=== PATIENT | female | born 1960 | race Caucasian/White ===

== ENCOUNTER 2017-05-28 12:39 | Outpatient (CLI) | payer OTHER ==
--- NOTE | 2017-05-28 14:48 | MRI ---
MRI CERVICAL SPINE WITHOUT CONTRAST: Date: 05/28/17 HISTORY: Right arm, shoulder, and neck pain. FINDINGS: The vertebral body heights and marrow signal are maintained. There are multilevel degenerative change s manifested by disc osteophyte complexes and uncovertebral hypertrophic changes at C4-5-6-7 levels. There is effacement of the anterior thecal sac and impingement of the anterior spinal cord, most pro minent at C6-7 level. There is severe left-sided neural foraminal stenosis and mild to moderate right -sided neural foraminal stenosis at C4-5 level, mild to moderate right-sided neural foraminal stenosi s at C5-6 level, and severe right-sided and moderate left-sided neural foraminal stenosis at C6-7 lev el. No syrinx, myelomalacia or cord edema is seen. No tonsillar herniation is identified. IMPRESSION: Cervical spondylosis with central canal and neural foraminal stenoses at C4-5,C5-6, and C6-7 le vels. POS: CAT
== END 2017-05-28 12:40 | disposition home or self-care (01) ==
LOC: MRI 12:39
PROVIDERS: ATTEND Physician Assistant
DX: R93.7 Abnormal findings on diagnostic imaging of other parts of musculoskeletal system (principal); M47.812 Spondylosis without myelopathy or radiculopathy, cervical region; M48.02 Spinal stenosis, cervical region; M99.51 Intervertebral disc stenosis of neural canal of cervical region
CPT/HCPCS: 72141

== ENCOUNTER 2017-06-25 12:11 | Outpatient (CLI) | payer OTHER | END 2017-06-25 12:12 | disposition home or self-care (01) | LOC: BICMRI 12:11 | PROVIDERS: ATTEND Physician Assistant Surgical | DX: M47.26 Other spondylosis with radiculopathy, lumbar region (principal); M54.12 Radiculopathy, cervical region; M46.92 Unspecified inflammatory spondylopathy, cervical region | CPT/HCPCS: 72050; 72110; 72148 ==

== ENCOUNTER 2017-10-20 10:46 | Outpatient (CLI) | payer OTHER ==
--- NOTE | 2017-11-05 10:30 | MMO ---
BILATERAL DIGITAL SCREENING MAMMOGRAMS: HISTORY: This 56-year-old female presents for digital screening mammography. COMPARISON: 05/16/16, 05/31/14 outside examinations. This patient's mammogram is interpreted with the assistance of computer-aided detection. FINDINGS: The breasts are heterogeneously dense which can obscure small masses. Stable typically benign calcif ications bilaterally. Stable bilateral asymmetric densities. IMPRESSION: BI-RADS category 2, benign findings. Continued routine screening. BIRADS 2: Benign Finding(s) Routine annual screening mammography (for women over age 40) POS: KAMI
== END 2017-10-20 10:47 | disposition home or self-care (01) ==
LOC: SCSMAMMO 10:46
PROVIDERS: ATTEND Physician Assistant
DX: Z12.31 Encounter for screening mammogram for malignant neoplasm of breast (principal)
CPT/HCPCS: 77067

== ENCOUNTER 2018-01-20 06:29 | Day surgery (SDC) | payer OTHER ==
[2018-01-19 08:51] VITALS: BMI 21.6
--- NOTE | 2018-01-20 03:35 | HP ---
SHORT STAY HISTORY AND PHYSICAL DATE OF ADMISSION: 01/20/2018 HISTORY OF PRESENT ILLNESS: This is a 57-year-old female comes for a colonoscopy for colon cancer screening. The patient has no specific GI symptoms. Her bowel movements are regular. There is no abdominal pain or hematochezia. No family history of colon cancer. The patient had a perforated diverticular disease in 2013 and underwent surgery with colostomy and subsequent colostomy takedown. No relevant history. ALLERGIES: CIPRO, SULFA, IODINE, NAPROXEN, VELBAN and EFFEXOR. SOCIAL HISTORY: The patient smokes a pack of cigarette. No alcohol intake.. MEDICAL ILLNESSES: 1. Hyperlipidemia. 2. Chronic back pain. 3. Ruptured diverticular disease. 4. Deep venous thrombosis. 5. Depression and anxiety. PHYSICAL EXAMINATION: VITAL SIGNS: Pulse is 70, blood pressure 130/70. HEENT: Conjunctivae clear. CARDIOVASCULAR: First and second heart sounds normal. LUNGS: Clear to auscultation. ABDOMEN: Soft to palpate. No organomegaly. No tenderness. No masses. Bowel sounds are normal. ADMITTING DIAGNOSIS: A 57-year-old female comes for a colonoscopy for colon cancer screening. ISABELLE
--- NOTE | 2018-01-20 10:11 | OP ---
DATE OF PROCEDURE: 01/20/2018 SURGEON: Fernanda Molina M.D. OPERATIVE PROCEDURE: Colonoscopy with polypectomy. PREOPERATIVE DIAGNOSIS: A 57-year-old female undergoing colonoscopy for colon cancer miko miguel. POSTOPERATIVE DIAGNOSES: 1. Sessile polyp rectum status post snare cautery with good hemostasis. 2. Hemorrhoids. 3. Healthy anastomosis. 4. Scattered diverticular disease of the left colon and some areas of distal transverse colon. PROCEDURE IN DETAIL: The patient was placed on her left lateral position and was given sedation by A nesthesia Department. A rectal exam was done before the scope was advanced into the rectum. No lesi on felt on rectal exam. A Pentax video colonoscope was introduced into the rectum and advanced all t he way into the cecum. The appendical opening, ileocecal valve, cecum, no pathology seen. The patie nt did have some retained fecal residue which was washed out. The mucosa appears normal throughout t he colon. Withdrawal of scope the cecum, ascending colon, hepatic flexure, proximal transverse colon , no pathology seen. The patient had some scattered diverticula over the distal and transverse colon , descending colon, and sigmoid colon. A sessile polyp over the rectum removed with snare cautery wi th good hemostasis. She also had hemorrhoids. DISCHARGE PLANNING: This is a 57-year-old female who came for a colonoscopy for colon [facility] screening. She underwent colonoscopy with polypectomy. DISCHARGE RECOMMENDATIONS: 1. The patient was advised to call me if she develops abdominal pain or hematochezia. 2. High-fiber diet. 3. Metamucil. 4. Repeat colonoscopy in 5 years.
[2018-01-20] MEDS ORDERED: ePHEDrine/0.9% NaCl/PF SYRINGE 50 mg/10 ml ONE (15:33)
[2018-01-20] MEDS ORDERED: PROPOFOL 200 MG/20 ML VIAL ONE (15:33)
[2018-01-20] MEDS ORDERED: PHENYLEPHRINE-NS 100 MCG/ML 10 ML SYRINGE ONE (15:33)
== END 2018-01-20 09:40 | disposition home or self-care (01) ==
LOC: SDC 06:29
PROVIDERS: ATTEND Internal Medicine Gastroenterology
PROC: 0DBP8ZX Excision of Rectum, Via Natural or Artificial Opening Endoscopic, Diagnostic (ICD-10-PCS; principal; 2018-01-20)
DX: Z12.11 Encounter for screening for malignant neoplasm of colon (principal); D12.8 Benign neoplasm of rectum; K64.9 Unspecified hemorrhoids; F17.210 Nicotine dependence, cigarettes, uncomplicated; Z91.041 Radiographic dye allergy status; Z88.2 Allergy status to sulfonamides; Z88.1 Allergy status to other antibiotic agents
CPT/HCPCS: 88305; J2704

== ENCOUNTER 2018-04-08 12:49 | Outpatient (CLI) | payer OTHER ==
[2018-04-08 13:56] LABS: #Basophils 0.1 thou/uL (0.0-0.2); #Eosinphils 0.1 thou/uL (0.0-0.7); #Lymphocytes 2.9 thou/uL (1.20-3.40); #Monocytes 0.8 thou/uL (0.11-0.59); %Basophils 1.2 % (0.0-1.0); %Eosinophils 1.2 % (0.0-10.0); %Lymphocytes 32.8 % (21.0-51.0); %Monocytes 8.7 % (0.0-10.0); %Neutrophils 56.1 % (42.0-75.0); Hemoglobin 14.7 g/dL (12.0-16.0); Mean Corpuscular HGB CONC 34.1 g/dL (32.0-36.0); Mean Corpuscular Hemoglobin 34.4 pg (27.0-31.0); Mean Platelet Volume 7.1 fL (7.4-10.4); Platelet Count 310 thou/uL (130-400); RBC Distribution Width 11.6 % (11.5-14.5); Red Blood Cell (RBC) Count 4.28 mill/uL (4.20-5.40); White Blood Cell (WBC) Count 8.9 thou/uL (4.8-10.8)
[2018-04-08 14:03] LABS: Prothrombin Time 12.9 SEC (12.0-14.7)
[2018-04-08 14:18] LABS: Anion Gap 13 mmol/L (10-20); BUN (Urea Nitrogen) 7 mg/dL (9.8-20.1); Calc. Creatinine Clearance 0 mL/min (70-130); Calcium 9.3 mg/dL (7.8-10.44); Carbon Dioxide 27 mmol/L (22-29); Chloride 108 mmol/L (98-107); Estimated GFR-MDRD 72; Glucose 88 mg/dL (70-105); Potassium 4.8 mmol/L (3.5-5.1); Sodium 143 mmol/L (136-145)
== END 2018-04-08 12:50 | disposition home or self-care (01) ==
LOC: LABBT 12:49
PROVIDERS: ATTEND Surgery
DX: Z01.818 Encounter for other preprocedural examination (principal); M48.02 Spinal stenosis, cervical region; M54.12 Radiculopathy, cervical region
CPT/HCPCS: 80048; 85025; 85610; 85730; 93005; 93010

== ENCOUNTER 2018-04-08 14:06 | Outpatient (CLI) | payer OTHER ==
--- NOTE | 2018-04-08 14:56 | ULT ---
ULTRASOUND WITH DOPPLER DUPLEX VENOUS LOWER EXTREMITIES BILATERAL: HISTORY: Bilateral lower extremity pain and history of prior deep venous thrombosis. Dr. Murillo notified Dr. Neal's PA, Rock Sanchez, by telephone via nurse Nabila Sapp, at 1445 hour s on 04/08/18. Nurse Sapp stated Rock Sanchez's acknowledgement. TECHNIQUE: Color flow Doppler, spectral waveform analysis of pulsed Doppler, and doe-scale imaging with deon ana and augmentation, were used to evaluate the bilateral common femoral, femoral, popliteal, welding machine operator friction ior tibial, and superficial femoral, veins; and the proximal portions of the profunda femoral and gre ater saphenous, veins. FINDINGS: There is no deep venous thrombosis in the right lower extremity. There is a linear mobile structure in the left common femoral vein that causes incomplete compressibi lity of that vein. There is blood flow around this linear structure. It extends into the proximal por tion of the left femoral vein. There is no deep venous thrombosis in the rest of the left lower extremity veins. IMPRESSION: Mobile material in the left common femoral vein consistent with nonocclusive deep venous thrombosis, of indeterminate age. CODE CR. JN R
== END 2018-04-08 14:07 | disposition home or self-care (01) ==
LOC: BICULT 14:06
PROVIDERS: ATTEND Surgery
DX: I82.409 Acute embolism and thrombosis of unspecified deep veins of unspecified lower extremity (principal)
CPT/HCPCS: 93970

== ENCOUNTER 2018-06-10 10:44 | Outpatient (CLI) | payer OTHER ==
--- NOTE | 2018-06-10 14:34 | ULT ---
VENOUS DOPPLER ULTRASOUND OF THE LEFT LOWER EXTREMITY: Date: 06/10/18 HISTORY: Deep venous thrombosis in the left lower extremity on exam of 04/08/18. TECHNIQUE: Booker scale ultrasound with color flow and spectral Doppler imaging of the deep venous system of the l eft lower extremity is performed. FINDINGS: There is incomplete compression with decreased flow in the left common femoral and proximal femoral v eins due to a partially occlusive thrombus. On the previous exam, the thrombus material demonstrated mobility, which is not seen on the current exam. IMPRESSION: Nonocclusive deep venous thrombosis of the left lower extremity. Discussed over the telephone with Dr. Collins at 1213 hours. CODE CR. POS: CAT
== END 2018-06-10 10:45 | disposition home or self-care (01) ==
LOC: ULT 10:44
PROVIDERS: ATTEND Internal Medicine Medical Oncology
DX: M79.605 Pain in left leg (principal); D68.69 Other thrombophilia; I82.402 Acute embolism and thrombosis of unspecified deep veins of left lower extremity

== ENCOUNTER 2018-09-14 13:13 | Outpatient (CLI) | payer OTHER ==
[2018-09-14 14:40] LABS: Hemoglobin 13.9 g/dL (12.0-16.0); Mean Corpuscular Hemoglobin 34.6 pg (27.0-31.0); Platelet Count 294 thou/uL (130-400); RBC Distribution Width 11.3 % (11.5-14.5); Red Blood Cell (RBC) Count 4.02 mill/uL (4.20-5.40)
[2018-09-14 14:44] LABS: PTT 32.1 SEC (22.9-36.1); Prothrombin Time 13.4 SEC (12.0-14.7)
[2018-09-14 14:58] LABS: Anion Gap 11 mmol/L (10-20); BUN (Urea Nitrogen) 8 mg/dL (9.8-20.1); Calc. Creatinine Clearance 0 mL/min (70-130); Calcium 9.7 mg/dL (7.8-10.44); Carbon Dioxide 27 mmol/L (22-29); Chloride 106 mmol/L (98-107); Estimated GFR-MDRD 81; Glucose 93 mg/dL (70-105); Sodium 140 mmol/L (136-145)
== END 2018-09-14 13:14 | disposition home or self-care (01) ==
LOC: LABBT 13:13
PROVIDERS: ATTEND Surgery
DX: Z01.818 Encounter for other preprocedural examination (principal); M48.02 Spinal stenosis, cervical region; M54.12 Radiculopathy, cervical region
CPT/HCPCS: 80048; 85027; 85610; 85730; 93005; 93010

== ENCOUNTER 2018-09-14 13:15 | Inpatient (IN) | payer OTHER ==
[2018-09-14 13:32] VITALS: BMI 22.6
[2018-09-16] MEDS ORDERED: Thrombin 5000 UNITS/5 ML VIAL ONE (06:38)
[2018-09-16] MEDS ORDERED: Sodium Chloride 0.9% 10 ML ONE (06:38)
[2018-09-16] MEDS ORDERED: Fentanyl 100 MCG/2 ML VIAL ONE ×3 (06:42→10:38)
[2018-09-16] MEDS ORDERED: Midazolam HCl 2 mg/2 ml Vial ONE (07:29)
[2018-09-16] MEDS ORDERED: traMADol HCl 50 MG TAB PO PRN (10:01)
[2018-09-16] MEDS ORDERED: Milk Of Magnesia 30 ML UDCUP PO PRN (10:01)
[2018-09-16] MEDS ORDERED: Fleet Enema 133 ML BOT PR PRN (10:01)
[2018-09-16] MEDS ORDERED: Mag-Al 1200 mg/1200 mg/30 ML UDCUP PO PRN (10:01)
[2018-09-16] MEDS ORDERED: Bisacodyl 10 MG SUPP PR PRN (10:01)
[2018-09-16] MEDS ORDERED: Acetaminophen 325 MG TAB PO PRN (10:01)
[2018-09-16] MEDS ORDERED: Promethazine HCl 25 MG/ML VIAL IM/IV PRN (10:01)
[2018-09-16] MEDS ORDERED: Morphine 2 MG/ML SYRINGE SLOW IVP PRN (10:42)
[2018-09-16] MEDS: Sodium Chloride 0.9% 1,000 ML IV SCH ×2 (11:05→19:28)
[2018-09-16] MEDS: Acetaminophen/Codeine 30-300mg Tablet PO PRN (14:04)
[2018-09-16] MEDS: CEFAZOLIN 2 GM in Premix Bag 1 BAG IVPB SCH (15:55)
[2018-09-16] MEDS: tiZANidine HCl 4 MG TAB PO PRN (15:55)
[2018-09-16] MEDS: HYDROcodone/Acetaminophen 7.5/325 mg Tablet PO PRN ×2 (15:55→20:10)
--- NOTE | 2018-09-16 16:31 | OP ---
DATE OF PROCEDURE: 09/16/2018 LOCATION: OR 12. WOUND CLASSIFICATION: Type 1 wound. TECHNOLOGY APPLICATIONS ENGINEER: Rock Sanchez PA-C. PREPROCEDURE DIAGNOSIS: Multilevel cervical stenosis with neck and arm pain and cervical radiculopathy. POSTPROCEDURE DIAGNOSIS: Multilevel cervical stenosis with neck and arm pain and cervical radiculopathy. PROCEDURES PERFORMED: 1. Anterior C4-C5, C5-C6, C6-C7 diskectomies for decompression of spinal cord nerve roots. 2. Placement of interbody spacers packed with local bone autograft obtained from the same incision and allograft, C4-C5, C5-C6, C6-C7 for arthrodesis. 3. Anterior cervical plate and screw fixation, C4-C5, C5-C6, C6-C7. 4. Use of operative microscope for microdissection. DESCRIPTION OF PROCEDURE: After informed consent was obtained from the patient, the patient was brought to the OR. Proper patient, pause, and identification were carried out. She was placed under excellent general endotracheal anesthesia and positioned supine on the OR table. All appropriate points were padded. We identified the right anterior oblique papi to allow for approach to the C4, C5, C6, C7 segments from the right. This region was sterilely cleansed, prepared, and draped. Proper patient, pause, and identification were carried out. The wound was then opened with a combination of sharp, monopolar, and blunt dissection, proceeded lateral to the tracheoesophageal bundle and laryngopharyngeal bundle and medial to the right carotid sheath. We identified the prevertebral layer of deep cervical fascia. Longus colli muscle dissection then occurred along with retraction. We then performed distraction at C4-C5. The microscope was brought in for microdissection. Diskectomy at C4-C5 was performed, and we were satisfied with the diskectomy and decompression of spinal cord nerve roots. Interbody spacer of appropriate dimension was placed at C4-C5 following preparation of the endplates for arthrodesis. The graft was packed with local bone autograft obtained from same incision and allograft. This procedure was then repeated at C5-C6 and C6-C7 with diskectomies, placement of interbody spacers, and arthrodesis. We were satisfied again with decompression at all of the segments along with reconstruction of the patient's spinal alignment into a more normal alignment. Copious irrigation occurred throughout as did maximizing hemostasis. The microscope was then removed, and anterior cervical plate and screw fixation at C4, C5, C6, C7 then occurred with final tightening. Copious irrigation occurred, and the wound was then closed in anatomic layers over a drain. The patient then emerged from anesthesia. Job ID: [id number]
[2018-09-16] MEDS ORDERED: Ziprasidone 20 MG CAP PO SCH (18:00)
[2018-09-16] MEDS: Gabapentin 300 MG CAP PO SCH (19:31)
[2018-09-17] MEDS: CEFAZOLIN 2 GM in Premix Bag 1 BAG IVPB SCH ×3 (00:08→15:07)
[2018-09-17] MEDS: tiZANidine HCl 4 MG TAB PO PRN ×3 (00:12→15:07)
[2018-09-17] MEDS: Acetaminophen/Codeine 30-300mg Tablet PO PRN (00:12)
[2018-09-17] MEDS: HYDROcodone/Acetaminophen 7.5/325 mg Tablet PO PRN ×4 (03:34→17:08)
[2018-09-17] MEDS: Gabapentin 300 MG CAP PO SCH (08:35)
[2018-09-17] MEDS ORDERED: FLUoxetine HCl 10 MG CAP PO SCH (09:00)
[2018-09-17] MEDS ORDERED: Atorvastatin Calcium 10 MG TAB PO SCH (09:00)
[2018-09-17] MEDS ORDERED: Enoxaparin Sodium 40 MG/0.4 ML SYRINGE SC SCH (09:00)
--- NOTE | 2018-09-17 10:40 | PRG ---
DATE OF SERVICE: 09/17/2018 I saw Ms. Car this morning in the hospital room. She is one day out from ACDF. Her drain is tapered off nicely and can be removed. She is very pleased with the results of her operation. Ms. Car is on Eliquis prior to surgery and cannot go back on that medicine for at least 10 days. A prophylactic dose only (not therapeutic dose) of Lovenox could be administered starting now for the next 10 days. She can then transition back to her Eliquis medication, according to Dr. Neal's wishes. Followup will be done by Dr. Neal in the clinic and she understands. If she needs teaching for Lovenox administration on her own at home that needs to be done before discharge. Job ID: [id number]
[2018-09-17] MEDS: Sodium Chloride 0.9% 1,000 ML IV SCH (13:06)
[2018-09-17 15:43] VITALS: BP 114/72; TEMP 98
== END 2018-09-17 18:12 | disposition home or self-care (01) | DRG 473 ==
LOC: SURG A 09-16 05:49 → SJJU 09-16 11:11
PROVIDERS: ADMIT Surgery; ATTEND Surgery
PROC: 0RG20A0 Fusion of 2 or more Cervical Vertebral Joints with Interbody Fusion Device, Anterior Approach, Anterior Column, Open Approach (ICD-10-PCS; principal; 2018-09-16)
PROC: 0RB30ZZ Excision of Cervical Vertebral Disc, Open Approach (ICD-10-PCS; 2018-09-16)
DX: M48.02 Spinal stenosis, cervical region (principal); M54.12 Radiculopathy, cervical region; Z88.2 Allergy status to sulfonamides; Z90.710 Acquired absence of both cervix and uterus
CPT/HCPCS: 76000; C1713; C1776; J0690; J1650; J2250; J3010; J3490

== ENCOUNTER 2018-09-15 14:19 | Outpatient (CLI) | payer OTHER ==
--- NOTE | 2018-09-15 15:11 | ULT ---
ULTRASOUND DOPPLER DUPLEX VENOUS BILATERAL LOWER EXTREMITIES: DATE: 09/15/2018 HISTORY: Follow-up left lower extremity DVT in 57-year-old female. COMPARISON: 06/10/2018 TECHNIQUE: Grayscale, color-flow, and spectral analysis, of the bilateral common femoral, profunda femoral, grea ter saphenous, femoral, popliteal, and posterior tibial, veins. FINDINGS: Right: Right lower extremity deep veins are clear. No DVT. Left: The previously demonstrated thrombus has retracted, such that it is no longer present in the proximal portion of the femoral vein. There is still chronic thrombus occupying the common femoral vein, but it is probably smaller. There is blood flow in all veins. IMPRESSION: Interval improvement in the nonocclusive, now chronic deep venous thrombosis in the left thigh. The c hronic clot has retracted.
== END 2018-09-15 14:20 | disposition home or self-care (01) ==
LOC: ULT 14:19
PROVIDERS: ATTEND Surgery
DX: I82.5Y2 Chronic embolism and thrombosis of unspecified deep veins of left proximal lower extremity (principal)
CPT/HCPCS: 93970

== ENCOUNTER 2018-11-01 08:35 | Outpatient (CLI) | payer OTHER ==
--- NOTE | 2018-11-01 10:50 | RAD ---
CERVICAL SPINE SERIES 3 VIEWS: HISTORY: Followup surgery. FINDINGS: The vertebral bodies are normal in height. The patient has undergone an anterior cervical fusion. T here has been placement of a plate and screws extending from C4 to C7. Markers of the disk implant a re within the confines of the disk level. There is no soft tissue swelling. IMPRESSION: Postoperative changes of the spine. POS: SIS
== END 2018-11-01 08:36 | disposition home or self-care (01) ==
LOC: TBSIIMAG 08:35
PROVIDERS: ATTEND Surgery
DX: M48.02 Spinal stenosis, cervical region (principal); Z98.1 Arthrodesis status
CPT/HCPCS: 72040